=== PATIENT | female | born 1940 | race Caucasian/White ===

== ENCOUNTER 2017-02-24 19:18 | Inpatient (IN) ==
--- NOTE | 2017-02-24 19:56 | Emergency Department Note ---
Disposition Clinical Impression: Hypoxia, COPD exacerbation CHF (congestive heart failure) Qualifiers: Congestive heart failure type: unspecified congestive heart failure type Congestive heart failure chronicity: unspecified congestive heart failure chronicity Qualified Code(s): I50.9 - Heart failure, unspecified Pneumonia Qualifiers: Pneumonia type: due to unspecified organism Laterality: left Lung location: lower lobe of lung Qualified Code(s): J18.1 - Lobar pneumonia, unspecified organism Disposition: Admitted As Inpatient Condition: Fair [facility]errals: [facility] [Primary Care Provider] - Forms: ED Satisfaction Letter General Adult HPI - General Chief complaint: ED Shortness of Breath/Dyspnea Stated complaint: PAMELA Time Seen by Provider: 02/24/17 19:37 Source: patient Mode of arrival: ambulatory Limitations: no limitations Nursing Notes Reviewed: Yes Vital Signs Reviewed: Yes - History of Present Illness HPI Narrative: Patient is a COPD patient requiring 4 L of home oxygen and alternative to 8 in order to do things around her house. Recent increase in overall dyspnea over the last week. Unable to get around with significant shortness of breath. Patient is on 6 L of nasal cannula presentation becomes hypoxic with talking. Patient does not have personal reading. Mild tachypnea. No cough. No sputum production. No fevers or chills. Seen at [place] [facility] with initial workup performed as below. Did not have any beds available for her admission. The patient has received breathing treatments as well as Solu-Medrol 125 mg prior to arrival. Patient has also received 1 g of Rocephin prior to arrival. Labs: Troponin 0.01. INR 1. BNP 316. CK 111 and within normal limits. AST 19. ALC 26. Bilirubin 0.3. Albumin 3.4. Magnesium 2.0. Sodium 142. Potassium 3.8. Chloride 102. CO2 to 35. Glucose 99. BUN20. Creatinine 0.797. GFR greater than 60. WBC 9.7. Hemoglobin 11.9. Platelets 267. They have drawn and sent a theophylline level. Medical history of pulmonary hypertension, obstructive sleep apnea, tobacco use , mechanical low back pain, edema, coronary artery disease, obesity, hypothyroidism, Medications albuterol, atorvastatin, budesonide, cyclobenzaprine, Bucky, chlorothiazide triamterene, levothyroxine, metoprolol, naproxen, pantoprazole, sertraline, theophylline, Chest x-ray with concern for pulmonary vascular congestion as well as a left lower lobe pneumonia. EKG showing sinus rhythm with ventricular rate of 94. 198. QRS 76. QTC 422. No acute changes from previous EKG of 11/25/16. - Related Data Home Medications Medication Instructions Recorded Confirmed Albuterol Neb [Proventil Neb] 2.5 mg IH Q4H PRN 02/24/17 02/24/17 Aspirin Enteric Coated [Aspirin EC] 81 mg PO DAILY 02/24/17 02/24/17 Atorvastatin [Lipitor] 40 mg PO HS 02/24/17 02/24/17 Budesonide/Formoterol 160/4.5 2 puff IH BIDR 02/24/17 02/24/17 [Symbicort 160/4.5] Calcium Carbonate/Vitamin D3 2 each PO DAILY 02/24/17 02/24/17 [Calcium 600-Vit D3 400 Tablet] Cyclobenzaprine [Flexeril] 10 mg PO TID PRN 02/24/17 02/24/17 Guaifenesin [Tab Tussin] 400 mg PO Q8H PRN 02/24/17 02/24/17 Levalbuterol Tartrate [Xopenex Hfa] 2 puff IH Q6H PRN 02/24/17 02/24/17 Levothyroxine [Synthroid] 176 mcg PO QAM 02/24/17 02/24/17 Metoprolol XL (24 HR) Succ [Toprol 25 mg PO DAILY 02/24/17 02/24/17 XL] Naproxen [Naprosyn] 500 mg PO BID PRN 02/24/17 02/24/17 Pantoprazole Sodium 40 mg PO DAILY 02/24/17 02/24/17 Polyethylene Glycol 3350 [MiraLAX] 17 gm PO BID 02/24/17 02/24/17 Vit Calc,Iron,Folic 1 each PO DAILY 02/24/17 02/24/17 [ Vitamins] Sertraline [Zoloft] 50 mg PO DAILY 02/24/17 02/24/17 Theophylline Anhydrous [Herson-24] 100 mg PO DAILY 02/24/17 02/24/17 Tiotropium [place] [Spiriva 2 puff IH DAILY 02/24/17 02/24/17 Respimat] Triamterene/HCTZ 37.5/25mg 1 each PO DAILY 02/24/17 02/24/17 [Dyazide] Allergies Allergy/AdvReac Type Severity Reaction Status Date / Time loratadine [From Claritin] Allergy See Verified 02/24/17 19:21 Comments adhesive tape AdvReac See Verified 02/24/17 19:51 Comments Iodinated Contrast- Oral and AdvReac See Verified 02/24/17 19:51 IV Dye Comments roflumilast AdvReac See Verified 02/24/17 19:51 Comments Review of Systems: Constitutional: No fever Vision: No blurred vision ENT: No rhinorrhea Respiratory: Shortness of breath Allergic: No allergies : No blood in urine GI: No blood in stool Hematologic: No bruising Dermatologic: No skin rash Musculoskeletal: No pain in the extremities Neuro: No numbness of the extremities Physical Exam General appearance: Mild tachypnea Eyes: anicteric sclerae, moist conjunctivae; PERRL HENT: Atraumatic; oropharynx clear with moist mucous membranes and no mucosal ulcerations Neck: Normal inspection; Trachea midline; FROM, supple Lungs: Decreased lung sounds with associated wheezing CV: Regular rate Abdomen: Soft, non-tender; no rebound or gaurding Extremities: No peripheral edema or extremity lymphadenopathy Skin: Normal temperature; no rash, ulcers or lesions Psych: Appropriate mood and affect Neuro: alert and oriented to person, place and time Course - Reevaluation(s) Reevaluation #1: Patient is been placed on BiPAP. DouNebs have been ordered. - Consultations Consultation #1: Discussed with Dr. March, hospitalist. Pt accepted for admission. Vital Signs Temperature 98.0 F 02/24/17 19:40 Pulse Rate 105 02/24/17 19:40 Respiratory Rate 20 02/24/17 19:40 Blood Pressure 134/84 02/24/17 19:40 O2 Sat by Pulse Oximetry 89 02/24/17 19:40 Temperature 98.0 F 02/24/17 19:40 Pulse Rate 104 02/24/17 21:31 Respiratory Rate 24 02/24/17 21:31 Blood Pressure 146/84 02/24/17 21:31 O2 Sat by Pulse Oximetry 95 02/24/17 21:31 Oxygen Delivery Oxygen Delivery Bipap
--- NOTE | 2017-02-24 20:25 | Emergency Department Note ---
START Narrative - START START: I examined this patient and my medical decision-making was reviewed with the Resident Physician. I agree with the documented findings, disposition and treatment plan as described except to the extent set forth below. I spent greater than 35 minutes of critical care time resuscitating this acutely ill patient suffering from hypoxia. The patient was sent from the [facility]. Suspect heart failure. Imaging and laboratory analyses were completed at the [facility]. The patient will be started on BiPAP and admitted for further evaluation.
[2017-02-24] MEDS ORDERED: Azithromycin 500 MG in D5% in Water 250 ML IVPB ONE (20:34)
[2017-02-24] MEDS ORDERED: Ipratropium/Albuterol Neb 3 ML IH ONE (20:34)
[2017-02-24] MEDS ORDERED: Naloxone 0.4 MG/ML INJ IVP PRN (21:16)
[2017-02-24] MEDS ORDERED: Acetaminophen 325 MG TABLET PO PRN (21:16)
[2017-02-24] MEDS ORDERED: Ipratropium/Albuterol Neb 3 ML IH PRN (21:26)
[2017-02-24] MEDS ORDERED: GuaiFENesin Liq 200 MG/10 ML UDC PO PRN (21:28)
[2017-02-24] MEDS ORDERED: Vancomycin 1,750 MG in D5% in Water 250 ML IVPB SCH (22:00)
--- NOTE | 2017-02-24 22:28 | Internal Med History&Physical ---
Date of Encounter: 02/24/17 Time of Encounter: 20:00 Assessment and Plan (1) CHF exacerbation Current visit: Yes Status: Acute Patient has shortness of breath. Elevated BNP (not significantly but patient is obese, possibly falsely low), chest x-ray shows pulmonary congestion. Patient has bilateral leg swelling. - We will place patient on IV Lasix. - Echocardiogram - Fluid restriction Qualifiers: Congestive heart failure type: unspecified congestive heart failure type Qualified Code(s): I50.9 - Heart failure, unspecified (2) MORIAH (obstructive sleep apnea) Current visit: Yes Status: Acute Continue BiPAP. At this point to place BiPAP continuously, may change to at bedtime after patient's condition improved (3) Pulmonary hypertension Current visit: Yes Status: Acute History of pulmonary hypertension. Probably due to MORIAH. Echo ordered. Treated hypoxia with BiPAP (4) DVT prophylaxis Current visit: Yes Status: Acute Heparin subcutaneously (5) Hypertension Current visit: Yes Status: Acute Continue home medications Qualifiers: Hypertension type: essential hypertension Qualified Code(s): I10 - Essential (primary) hypertension (6) Pneumonia Current visit: Yes Status: Acute Chest x-ray shows left lower lobe pneumonia. Patient was recently admitted to Hospital (less than 3 months), consider HCAP. - Place patient on Vanco, cefepime, and Levaquin. - Symptomatic treatment and supportive treatment with BiPAP Qualifiers: Pneumonia type: due to Pneumococcus Laterality: left Lung location: lower lobe of lung Qualified Code(s): J13 - Pneumonia due to Streptococcus pneumoniae (7) COPD exacerbation Current visit: Yes Status: Acute History of COPD. Patient has wheezing. Consider COPD exacerbation, probably triggered by pneumonia. - Treat patient with antibiotic, steroid, and bronchodilator. - Continue BiPAP supportive treatment. (8) Acute respiratory failure with hypoxia Current visit: Yes Status: Acute Most likely caused by COPD exacerbation and pneumonia, and CHF exacerbation. - Treat underlying disease as above. - Continue BiPAP supportive treatment - Closely monitor patient with cardiac and pulse oximeter monitoring. Internal Medicine - H&P: HPI Chief complaint: Shortness of breath Admitted From: Home Plans for Post Hospital Care: Home History of present illness: Ms. Rodgers is a 76 year old female with history of COPD on home oxygen and home BiPAP, pulmonary hypertension, MORIAH, transferred from [place] urgent care for worsening shortness of breath. Patient said she needed 5-8 L oxygen at home and BiPAP during night. Patient said she feel worsening shortness of breath since one week ago. Even worse in the last 3 days. No fever. Denies chest pain. Nonproductive cough. Denies nausea, vomiting, abdominal pain, or diarrhea. In the urgent care, chest x-ray shows pulmonary vascular congestion and left lower lobe pneumonia. Patient was recently admitted in the hospital in December 04 for pneumonia. Patient was given steroid and IV Lasix in [place] urgent care. Patient was admitted for further treatment. I have discussed with code status with patient. Patient clearly told me she does not want CPR if cardiac arrest happens. She accepts intubation if necessary. DNR CCA placed. Past Med Surg Social Fam HX - Past Medical History Medical history: CHF, COPD, coronary artery disease, diabetes, hyperlipidemia, thyroid disease Psychiatric history: no psych history - Past Surgical History Surgical History: hysterectomy - Social History Smoking Status: Former smoker - Family History Mother History Unknown: Yes Internal Medicine - H&P: Meds Albuterol Neb [Proventil Neb] 2.5 mg IH Q4H PRN 02/24/17 [History] Aspirin Enteric Coated [Aspirin EC] 81 mg PO DAILY 02/24/17 [History] Atorvastatin [Lipitor] 40 mg PO HS 02/24/17 [History] Budesonide/Formoterol 160/4.5 [Symbicort 160/4.5] 2 puff IH BIDR 02/24/17 [ History] Calcium Carbonate/Vitamin D3 [Calcium 600-Vit D3 400 Tablet] 2 each PO DAILY [History] Cyclobenzaprine [Flexeril] 10 mg PO TID PRN 02/24/17 [History] Guaifenesin [Tab Tussin] 400 mg PO Q8H PRN 02/24/17 [History] Levalbuterol Tartrate [Xopenex Hfa] 2 puff IH Q6H PRN 02/24/17 [History] Levothyroxine [Synthroid] 176 mcg PO QAM 02/24/17 [History] Metoprolol XL (24 HR) Succ [Toprol XL] 25 mg PO DAILY 02/24/17 [History] Naproxen [Naprosyn] 500 mg PO BID PRN 02/24/17 [History] Pantoprazole Sodium 40 mg PO DAILY 02/24/17 [History] Polyethylene Glycol 3350 [MiraLAX] 17 gm PO BID 02/24/17 [History] Vit Calc,Iron,Folic [ Vitamins] 1 each PO DAILY 02/24/17 [ History] Sertraline [Zoloft] 50 mg PO DAILY 02/24/17 [History] Theophylline Anhydrous [Herson-24] 100 mg PO DAILY 02/24/17 [History] Tiotropium [place] [Spiriva Respimat] 2 puff IH DAILY 02/24/17 [History] Triamterene/HCTZ 37.5/25mg [Dyazide] 1 each PO DAILY 02/24/17 [History] 3 Allergy/AdvReac Type Severity Reaction Status Date / Time loratadine [From Claritin] Allergy See Verified 02/24/17 19:21 Comments adhesive tape AdvReac See Verified 02/24/17 19:51 Comments Iodinated Contrast- Oral and AdvReac See Verified 02/24/17 19:51 IV Dye Comments roflumilast AdvReac See Verified 02/24/17 19:51 Comments All Systems PM: A 10-system review of systems was performed and is negative for pertinent findings except as documented above in the HPI. - Constitutional Vitals: Temp Pulse Resp BP Pulse Ox 98.0 F 104 24 146/84 95 02/24/17 19:40 02/24/17 21:31 02/24/17 21:31 02/24/17 21:31 02/24/17 21:31 General appearance: Present: mild distress, A&O X 3, morbidly obese, answers questions appropriately - Head Head exam: Present: atraumatic, normocephalic - Eye Eye exam: Present: PERRL, conjuntiva pink, sclera anicteric Pupils: Present: PERRL - Neck Neck exam general surgery: Present: supple, trachea midline. Absent: lymphadenopathy - Respiratory Respiratory exam: Present: CTAB, wheezes (Scattered wheezes bilaterally). Absent: accessory muscle use, rales, rhonchi - Cardiovascular Cardiovascular exam: Present: RRR, +S1, +S2. Absent: diastolic murmur, gallop, rubs, systolic murmur - GI/Abdominal GI/Abdominal exam: Present: normal bowel sounds, soft, no peritoneal signs. Absent: distended, tenderness - Extremities Exam Extremities exam: Present: pedal edema (Bilateral pedal edema up to knees), warm , radial pulses palpable and symmetrical. Absent: calf tenderness, cyanotic - Neurological Exam Neurological exam: Present: CN II-XII intact, oriented X3, no focal deficits. Absent: pronater drift, facial droop, speech deficit - Skin Skin exam: Present: dry, intact Internal Med - H&P Results - EKG Data -: EKG Interpreted by Myself EKG shows normal: sinus rhythm Rate: tachycardia - EKG Data Prior EKG available for review: yes When compared to previous EKG: there is no significant change
[2017-02-24] MEDS: Ipratropium/Albuterol Neb 3 ML IH SCH (22:59)
[2017-02-24] MEDS: Budesonide/Formoterol 160/4.5 MDI IH SCH (22:59)
[2017-02-24] MEDS ORDERED: Vancomycin 1,750 MG in D5% in Water 500 ML IVPB ONE (23:30)
[2017-02-24] MEDS: Levofloxacin 750 MG/150 ML 750 MG/150 ML BAG IVPB SCH (23:58)
[2017-02-24] MEDS: methylPREDNISolone 125 MG/2 ML VIAL IVP SCH (23:59)
[2017-02-25] MEDS: Cefepime HCl 1,000 MG in Water for inj. (sterile) 20 ML 10 ML IVP SCH ×3 (01:10→16:12)
[2017-02-25] MEDS: Ipratropium/Albuterol Neb 3 ML IH SCH ×4 (03:36→22:28)
[2017-02-25] MEDS: *HR* Heparin 5,000 UNIT/ML VIAL SQ SCH ×2 (05:10→17:18)
[2017-02-25 05:54] LABS: Basophils % 0.1 %; Hematocrit 36.1 % (35.3-44.9); Hemoglobin 11.2 g/dL (11.5-15.4); Immature Granulocytes % 0.7 % (0-4); Lymphocytes # 0.6 K/mcL (0.6-4.6); Lymphocytes % 6.8 %; Mean Corpuscular Hemoglobin 29.8 pg (28.0-33.3); Mean Platelet Volume 9.3 fL (9.4-12.4); Monocytes # 0.1 K/mcL (0.0-1.3); Monocytes % 0.8 %; Neutrophils # 8.1 K/mcL (1.6-8.9); Platelet Count 234 K/mcL (140-400); Red Blood Count 3.76 M/mcL (3.82-4.97); Red Cell Distribution Width 15.4 % (11.5-14.5); Segmented Neutrophils % 91.6 %
[2017-02-25 06:11] LABS: Alanine Aminotransferase 16 Units/L (7-52); Albumin 3.6 g/dL (3.5-5.7); Albumin/Globulin Ratio 1.4 (1.1-2.2); Alkaline Phosphatase 81 Units/L (34-104); Aspartate Amino Transferase 13 Units/L (13-39); BUN/Creatinine Ratio 26 (6-26); Bilirubin,Total 0.3 mg/dL (0.3-1.0); Blood Urea Nitrogen 23 mg/dL (8-23); Calcium 9.4 mg/dL (8.6-10.3); Carbon Dioxide 34 mEq/L (23-29); Chloride 99 mEq/L (98-107); Globulin 2.6 g/dL (2.4-3.5); Glucose 160 mg/dL (70-105); Magnesium 1.6 mg/dL (1.6-2.6); Osmolality,Calculated 299 (280-300); Potassium 3.6 mEq/L (3.5-5.1); Sodium 141 mEq/L (136-145); Total Protein 6.2 g/dL (6.4-8.9); eGFR For African Americans > 60 (> 60); eGFR For Non-African Americans > 60 (> 60)
[2017-02-25] MEDS: Aspirin Enteric Coated 81 MG Tablet PO SCH (08:15)
[2017-02-25] MEDS: Metoprolol XL (24 HR) Succ 25 MG TAB.ER.24H PO SCH (08:15)
[2017-02-25] MEDS: Furosemide 40 MG/4 ML VIAL IVP SCH ×2 (08:16→22:17)
[2017-02-25] MEDS: methylPREDNISolone 125 MG/2 ML VIAL IVP SCH ×2 (08:20→16:08)
[2017-02-25] MEDS: Levofloxacin 750 MG/150 ML 750 MG/150 ML BAG IVPB SCH (08:21)
[2017-02-25] MEDS: Budesonide/Formoterol 160/4.5 MDI IH SCH ×2 (10:56→22:28)
[2017-02-25] MEDS ORDERED: Vancomycin 1,500 MG in D5% in Water 250 ML IVPB SCH (11:30)
--- NOTE | 2017-02-25 13:44 | Internal Med Progress Note ---
Date of Encounter: 02/25/17 Time of Encounter: 13:30 - Assessment and plan (1) Pneumonia Current Visit: Yes Status: Acute Assessment and plan: Per chest x-ray there is left lower pneumonia. Patient was recently admitted to the hospital for same, most likely HCAP. Patient is also being admitted for acute exacerbation of CHF which is worsening her shortness of breath. She is requiring high flow oxygen, though she does not appear to be in severe respiratory distress. Her lungs are diminished throughout posterior baeza. We will continue BiPAP for respiratory distress, O2, nebulizer treatments. Continue telemetry and continuous pulse ox. Continue IV vancomycin, cefepime, and IV Levaquin. Continue IV Solu-Medrol Continue Robitussin. Qualifiers: Pneumonia type: due to Pneumococcus Laterality: left Lung location: lower lobe of lung Qualified Code(s): J13 - Pneumonia due to Streptococcus pneumoniae (2) COPD exacerbation Current Visit: Yes Status: Acute Assessment and plan: History of COPD, difficult to determine if this is acute exacerbation of COPD, CHF, or pneumonia combination of all. Plan as above for pneumonia. Attempt to wean oxygen as soon as possible. (3) CHF exacerbation Current Visit: Yes Status: Acute Assessment and plan: She presents with shortness of breath for 3-4 days. Elevated BNP mildly. Chest x-ray shows pulmonary congestion, as well as pneumonia. Patient is requiring high flow oxygen at this time. She also has BiPAP in the room. Patient has 3-4+ pitting edema to bilateral lower extremities, edema has increased over the last few weeks. Continue IV Lasix 40 mg by mouth twice a day Patient is on a 1 L fluid restriction Daily weights, strict I and O Echocardiogram shows preserved ejection fraction with indeterminant diastolic function due to tachycardia, mild aortic sclerosis. Qualifiers: Congestive heart failure type: unspecified congestive heart failure type Qualified Code(s): I50.9 - Heart failure, unspecified (4) MORIAH (obstructive sleep apnea) Current Visit: Yes Status: Acute Assessment and plan: Patient has BiPAP at home, currently she is refusing to wear the BiPAP due to mask not fitting and causing her actual physical pain to her neck and head. Nurse was to call respiratory for new mask. (5) DVT prophylaxis Current Visit: Yes Status: Acute Assessment and plan: Heparin subcutaneous. (6) Hypertension Current Visit: Yes Status: Acute Assessment and plan: Continue to monitor and continue home medications. Qualifiers: Hypertension type: essential hypertension Qualified Code(s): I10 - Essential (primary) hypertension (7) Acute respiratory failure with hypoxia Current Visit: Yes Status: Acute Assessment and plan: Patient is requiring high flow, supplemental oxygen. History of COPD, CHF, recurrent pneumonia. Continue to monitor Continuous pulse ox and telemetry. - Time Spent With Patient less than 15 minutes - Subjective Interval history: Patient was seen and assessed the bedside at 1330. Patient denies chest pain, abdominal pain, nausea, vomiting diarrhea. Patient does report headache due to mask from BiPAP. Primary nurse will call to have mask replaced. - Constitutional Vitals: Temp Pulse Resp BP Pulse Ox 98.6 F 107 16 147/78 90 02/25/17 11:07 02/25/17 11:07 02/25/17 11:07 02/25/17 11:07 02/25/17 11:07 General appearance: Present: cooperative, mild distress, A&O X 3, morbidly obese , pleasant, answers questions appropriately - Head Head exam: Present: atraumatic, normal inspection, normocephalic - Eye Eye exam: Present: normal appearance, conjuntiva pink, sclera anicteric - Neck Neck exam general surgery: Present: supple, trachea midline. Absent: lymphadenopathy - Respiratory Respiratory exam: Present: decreased breath sounds, CTAB. Absent: accessory muscle use, rales, respiratory distress, rhonchi, wheezes - Cardiovascular Cardiovascular exam: Present: RRR, +S1, +S2, tachycardia. Absent: diastolic murmur, gallop, rubs, systolic murmur - GI/Abdominal GI/Abdominal exam: Present: normal bowel sounds, soft, no peritoneal signs. Absent: distended, hepatomegaly, tenderness - Extremities Exam Extremities exam: Present: pedal edema, warm, radial pulses palpable and symmetrical. Absent: calf tenderness, cyanotic, normal capillary refill, normal inspection Additional comments: Patient has 3-4+ pitting edema to bilateral lower extremities. - Neurological Exam Neurological exam: Present: alert, oriented X3, no focal deficits. Absent: facial droop, speech deficit - Skin Skin exam: Present: dry, intact, normal color, warm. Absent: rash Internal Medicine: Result - Labs CBC & Chem 7: 02/25/17 05:08 12/22/17 05:08 Consult Discharge Plan - Plan [facility]errals: [facility] [Primary Care Provider] -
[2017-02-25] MEDS ORDERED: D5% in Water 1,000 ML IVC PRN (16:38)
[2017-02-25] MEDS ORDERED: Dextrose Gel 15 GM PO PRN ×2 (16:38)
[2017-02-25] MEDS ORDERED: *HR* Dextrose 50 % in Water (Syg) 50 ML SYRINGE IVP PRN (16:38)
[2017-02-25] MEDS: Insulin LISPRO 300 UNITS/3 ML VIAL SQ SCH ×2 (17:19→22:42)
--- NOTE | 2017-02-25 18:26 | Electrocardiograph Report ---
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
[2017-02-26] MEDS: Cefepime HCl 1,000 MG in Water for inj. (sterile) 20 ML 10 ML IVP SCH ×3 (01:27→16:59)
[2017-02-26] MEDS: methylPREDNISolone 125 MG/2 ML VIAL IVP SCH ×2 (01:28→08:18)
[2017-02-26] MEDS: Ipratropium/Albuterol Neb 3 ML IH SCH ×4 (04:56→20:29)
[2017-02-26] MEDS: *HR* Heparin 5,000 UNIT/ML VIAL SQ SCH ×2 (06:39→16:58)
[2017-02-26 06:41] LABS: BUN/Creatinine Ratio 29 (6-26); Blood Urea Nitrogen 31 mg/dL (8-23); Calcium 9.6 mg/dL (8.6-10.3); Carbon Dioxide 37 mEq/L (23-29); Chloride 95 mEq/L (98-107); Glucose 158 mg/dL (70-105); Osmolality,Calculated 300 (280-300); Potassium 3.5 mEq/L (3.5-5.1); Sodium 140 mEq/L (136-145); eGFR For African Americans > 60 (> 60); eGFR For Non-African Americans 50 (> 60)
[2017-02-26 06:55] LABS: Basophils % 0.2 %; Hematocrit 36.7 % (35.3-44.9); Hemoglobin 11.8 g/dL (11.5-15.4); Immature Granulocytes % 0.7 % (0-4); Lymphocytes # 0.7 K/mcL (0.6-4.6); Lymphocytes % 5.8 %; Mean Corpuscular HGB Conc 32.2 g/dL (31.6-35.5); Mean Corpuscular Hemoglobin 30.6 pg (28.0-33.3); Mean Corpuscular Volume 95.3 fL (83.0-100.0); Mean Platelet Volume 9.2 fL (9.4-12.4); Monocytes # 0.4 K/mcL (0.0-1.3); Monocytes % 3.5 %; Neutrophils # 11.4 K/mcL (1.6-8.9); Platelet Count 233 K/mcL (140-400); Red Blood Count 3.85 M/mcL (3.82-4.97); Red Cell Distribution Width 15.9 % (11.5-14.5); Segmented Neutrophils % 89.8 %
[2017-02-26 07:30] LABS: Hemoglobin A1C 5.7 %
[2017-02-26] MEDS: Levofloxacin 750 MG/150 ML 750 MG/150 ML BAG IVPB SCH (08:17)
[2017-02-26] MEDS: Furosemide 40 MG/4 ML VIAL IVP SCH ×2 (08:18→20:20)
[2017-02-26] MEDS: Insulin LISPRO 300 UNITS/3 ML VIAL SQ SCH ×4 (08:18→20:48)
[2017-02-26] MEDS: Cholecalciferol (D-3) 1,000 UNIT TABLET PO SCH (08:19)
[2017-02-26] MEDS: Metoprolol XL (24 HR) Succ 25 MG TAB.ER.24H PO SCH (08:19)
[2017-02-26] MEDS: Aspirin Enteric Coated 81 MG Tablet PO SCH (08:19)
[2017-02-26] MEDS ORDERED: NON-FORMULARY MEDICATION 1 EACH EACH (Calcium Carbonate/Vitamin D3 [Calcium 600-Vit D3 400 PO SCH (09:00)
[2017-02-26] MEDS ORDERED: Albuterol 2.5 MG/3 ML NEBULIZER IH PRN (09:33)
--- NOTE | 2017-02-26 09:49 | Pulmonology Consult Note ---
Date of Encounter: 02/26/17 Time of Encounter: 09:45 Assessment and Plan (1) Acute and chronic respiratory failure with hypoxia Current Visit: Yes Status: Acute Patient is coming with acute on chronic hypoxic respiratory failure with the presentation slow increased progressive shortness of breadth with some pedal edema with not much cough and sputum production the contributor most like exacerbation of diastolic heart failure agree with the assesment with the hospitalist team as the primary diagnosis CHF . Patient O2 requirements slightly above baseline. With CXR shows prominent pulmonary vasculature with left sided pleural effusion with atelectasis vs pneumonia. (2) COPD (chronic obstructive pulmonary disease) Current Visit: Yes Status: Chronic Symptoms with out any increased cough and sputum production i dont think it is a COPD flare up , will continue bronchodilators will change IV steroids to PO steroids and descalate with total of 5 days . Qualifiers: Qualified Code(s): J44.9 - Chronic obstructive pulmonary disease, unspecified (3) CHF (congestive heart failure) Current Visit: Yes Status: Acute Patient has elevated BNP with some indeterminate diastolic function to continue diuresis to aim atleast 1 liter negative . Qualifiers: Congestive heart failure type: diastolic Congestive heart failure chronicity: acute on chronic Qualified Code(s): I50.33 - Acute on chronic diastolic (congestive) heart failure (4) Pneumonia Current Visit: Yes Status: Acute Left lower lobe opacity can due to atelectasis /pneumonia even though she doesnt have much cough and sputum production atypical pneumonia can present like that will deescalate antibiotics , will check for legionell and mycoplasma , will continue levaquin for total of 7 days . Qualifiers: Pneumonia type: due to Pneumococcus Laterality: left Lung location: lower lobe of lung Qualified Code(s): J13 - Pneumonia due to Streptococcus pneumoniae History of Present Illness Consult date: 02/26/17 Requesting physician: Annamaria Juarez Reason for consult: other (acute on chronic hypoxic respiratory failure ) Chief complaint: shortness of breadth History of present illness: 76 year old female with past medical history significant for COPD on Home Oxygen 6-8 litres at baseline , has MORIAH/OHS according to chart review patient is on BIPAP , is coming [facility] she went for evaluation of her shortness of breadth , according to history she was getting progressively short of breadth , with some cough which is mostly non productive , denies any chest pain or tightness , denies any fever or chills , denies any GI or Neuro symptoms Past Med Surg Social Fam HX - Past Medical History Medical history: CHF, COPD, coronary artery disease, diabetes, hyperlipidemia, thyroid disease Psychiatric history: no psych history - Past Surgical History Surgical History: hysterectomy, orthopedic, other - Social History Smoking Status: Former smoker Smokeless Tobacco Status: No Alcohol use: none Drug use: none - Family History Mother History Unknown: Yes Living Status: Cause of : Anyeurism Hx Family Cardiac Disorders: Yes Father Living Status: Hx Family Cardiac Disorders: Yes (HTN) Hx Family Cancer: Yes Medications and Allergies Albuterol Neb [Proventil Neb] 2.5 mg IH Q4H PRN 02/24/17 [History] Aspirin Enteric Coated [Aspirin EC] 81 mg PO DAILY 02/24/17 [History] Atorvastatin [Lipitor] 40 mg PO HS 02/24/17 [History] Budesonide/Formoterol 160/4.5 [Symbicort 160/4.5] 2 puff IH BIDR 02/24/17 [ History] Calcium Carbonate/Vitamin D3 [Calcium 600-Vit D3 400 Tablet] 2 each PO DAILY [History] Cyclobenzaprine [Flexeril] 10 mg PO TID PRN 02/24/17 [History] Guaifenesin [Tab Tussin] 400 mg PO Q8H PRN 02/24/17 [History] Levalbuterol Tartrate [Xopenex Hfa] 2 puff IH Q6H PRN 02/24/17 [History] Levothyroxine [Synthroid] 176 mcg PO QAM 02/24/17 [History] Metoprolol XL (24 HR) Succ [Toprol XL] 25 mg PO DAILY 02/24/17 [History] Naproxen [Naprosyn] 500 mg PO BID PRN 02/24/17 [History] Pantoprazole Sodium 40 mg PO DAILY 02/24/17 [History] Polyethylene Glycol 3350 [MiraLAX] 17 gm PO BID 02/24/17 [History] Vit Calc,Iron,Folic [ Vitamins] 1 each PO DAILY 02/24/17 [ History] Sertraline [Zoloft] 50 mg PO DAILY 02/24/17 [History] Theophylline Anhydrous [Herson-24] 100 mg PO DAILY 02/24/17 [History] Tiotropium [place] [Spiriva Respimat] 2 puff IH DAILY 02/24/17 [History] Triamterene/HCTZ 37.5/25mg [Dyazide] 1 each PO DAILY 02/24/17 [History] 3 Allergy/AdvReac Type Severity Reaction Status Date / Time loratadine [From Claritin] Allergy See Verified 02/24/17 19:21 Comments adhesive tape AdvReac See Verified 02/24/17 19:51 Comments Iodinated Contrast- Oral and AdvReac See Verified 02/24/17 19:51 IV Dye Comments roflumilast AdvReac See Verified 02/24/17 19:51 Comments All Systems: A 10-system review of systems was performed and is negative for pertinent findings except as documented above in the HPI. Physical Examination Vital Signs: Vital Signs, Last 4 Hours Temp Pulse Resp BP Pulse Ox 02/26/17 06:59 97.8 F 83 16 123/75 94 Auscultation: left: diminished breath sounds, bilateral: other (very mild basilar scattered crackles ) Results - Laboratory Findings CBC and BMP: 02/26/17 06:15 02/26/17 06:15 Abnormal lab findings: Abnormal lab results WBC 12.7 K/mcL (4.3-11.1) H 02/26/17 06:15 RDW 15.9 % (11.5-14.5) H 02/26/17 06:15 MPV 9.2 fL (9.4-12.4) L 02/26/17 06:15 Neutrophils # 11.4 K/mcL (1.6-8.9) H 02/26/17 06:15 Chloride 95 mEq/L (98-107) L 02/26/17 06:15 Carbon Dioxide 37 mEq/L (23-29) H 02/26/17 06:15 BUN 31 mg/dL (8-23) H 02/26/17 06:15 Est GFR (Non-Af Amer) 50 (> 60) L 02/26/17 06:15 BUN/Creatinine Ratio 29 (6-26) H 02/26/17 06:15 Glucose 158 mg/dL (70-105) H 02/26/17 06:15 POC Glucose 155 (58-89) H 02/25/17 22:32 Hemoglobin A1c 5.7 % (-5.6) H 02/26/17 06:15 Serum Total Protein 6.2 g/dL (6.4-8.9) L 02/25/17 05:08 - Clinical Findings Intake & Output: Intake & Output 02/25/17 02/26/17 02/26/17 23:59 07:59 15:59 Intake Total Output Total 200 / 200 Balance -190 / -190 Weight 108.588 kg Consult Discharge Plan - Plan [facility]: [facility] [Primary Care Provider] -
[2017-02-26] MEDS ORDERED: Aminoglycoside Consult 1 EACH MC ONE (10:28)
[2017-02-26] MEDS ORDERED: Furosemide 40 MG/4 ML VIAL IVP ONE (10:29)
[2017-02-26] MEDS: Budesonide/Formoterol 160/4.5 MDI IH SCH ×2 (10:34→20:29)
[2017-02-26] MEDS ORDERED: Vancomycin 1,500 MG in D5% in Water 250 ML IVPB SCH (12:00)
--- NOTE | 2017-02-26 14:27 | Internal Med Progress Note ---
Date of Encounter: 02/26/17 Time of Encounter: 09:20 - Assessment and plan (1) Pneumonia Current Visit: Yes Status: Acute Assessment and plan: Per chest x-ray there is left lower pneumonia. Patient was recently admitted to the hospital for same, most likely HCAP. Patient is also being admitted for acute exacerbation of CHF which is worsening her shortness of breath. Patient is in no respiratory distress, oxygen has been turned down to 5 L. Her lungs are diminished throughout posterior baeza. Repeat chest x-ray today shows persistent cardiomegaly with small pleural effusions and atelectasis, left worse than right. We will continue BiPAP for respiratory distress, O2, nebulizer treatments. Continue telemetry and continuous pulse ox. Continue IV Levaquin and cefepime. Vancomycin has been stopped. IV Solu-Medrol has been stopped, will continue prednisone 40 mg by mouth daily. Continue Robitussin. Qualifiers: Pneumonia type: due to Pneumococcus Laterality: left Lung location: lower lobe of lung Qualified Code(s): J13 - Pneumonia due to Streptococcus pneumoniae (2) COPD exacerbation Current Visit: Yes Status: Acute Assessment and plan: History of COPD, difficult to determine if this is acute exacerbation of COPD, CHF, or pneumonia combination of all. Plan as above for pneumonia. Attempt to wean oxygen as soon as possible. Patient has been evaluated by pulmonology today. I appreciate his recommendations and consultation. He feels that this is primarily related to CHF patient needs continued diuresis. (3) CHF exacerbation Current Visit: Yes Status: Acute Assessment and plan: She presents with shortness of breath for 3-4 days. Elevated BNP mildly. Chest x-ray on 02/26 shows cardiomegaly small pleural effusions and atelectasis , left worse than right. Patient is requiring high flow oxygen at this time. She also has BiPAP in the room. Patient has 3-4+ pitting edema to bilateral lower extremities, edema has increased over the last few weeks, does not appear to be improving. Continue IV Lasix 40 mg by mouth twice a day Patient is on a 1 L fluid restriction Daily weights, strict I and O Echocardiogram shows preserved ejection fraction with indeterminant diastolic function due to tachycardia, mild aortic sclerosis. Patient had approximately 610 ML out yesterday. Qualifiers: Congestive heart failure type: unspecified congestive heart failure type Qualified Code(s): I50.9 - Heart failure, unspecified (4) MORIAH (obstructive sleep apnea) Current Visit: Yes Status: Acute Assessment and plan: Patient has BiPAP at home, will continue here as well. (5) DVT prophylaxis Current Visit: Yes Status: Acute Assessment and plan: Heparin subcutaneous BID (6) Hypertension Current Visit: Yes Status: Acute Assessment and plan: Continue to monitor and continue home medications. Within acceptable range. Qualifiers: Hypertension type: essential hypertension Qualified Code(s): I10 - Essential (primary) hypertension (7) Acute respiratory failure with hypoxia Current Visit: Yes Status: Acute Assessment and plan: Patient is requiring supplemental oxygen. History of COPD, CHF, recurrent pneumonia. Continue to monitor Continuous pulse ox and telemetry. - Subjective Interval history: Patient was seen and assessed the bedside at 0920. Patient denies chest pain, abdominal pain, nausea, vomiting diarrhea. She denies headache or dizziness. Patient has been wearing BiPAP at night, mask has improved. Patient states that although she is feeling better, she is not breathing any better, nor has her edema in her bilateral lower extremities really improved. - Constitutional Vitals: Temp Pulse Resp BP Pulse Ox 98.6 F 108 17 130/63 92 02/26/17 11:33 02/26/17 11:33 02/26/17 11:33 02/26/17 11:33 02/26/17 11:33 General appearance: Present: cooperative, mild distress, A&O X 3, morbidly obese , pleasant, answers questions appropriately - Head Head exam: Present: atraumatic, normal inspection, normocephalic - Eye Eye exam: Present: normal appearance, conjuntiva pink, sclera anicteric - Neck Neck exam general surgery: Present: supple, trachea midline. Absent: lymphadenopathy, tenderness - Respiratory Respiratory exam: Present: decreased breath sounds, CTAB. Absent: accessory muscle use, chest wall tenderness, rales, respiratory distress, rhonchi, wheezes - Cardiovascular Cardiovascular exam: Present: RRR, +S1, +S2. Absent: diastolic murmur, gallop, rubs, systolic murmur - GI/Abdominal GI/Abdominal exam: Present: distended, normal bowel sounds, soft, no peritoneal signs. Absent: tenderness - Extremities Exam Extremities exam: Present: pedal edema, warm, radial pulses palpable and symmetrical. Absent: calf tenderness, cyanotic, normal capillary refill, tenderness - Neurological Exam Neurological exam: Present: alert, oriented X3, no focal deficits. Absent: facial droop, speech deficit - Skin Skin exam: Present: dry, intact, normal color, warm. Absent: rash Internal Medicine: Result - Labs CBC & Chem 7: 02/26/17 06:15 02/26/17 06:15 Labs: Short CBC 02/26/17 Range/Units 06:15 WBC 12.7 H (4.3-11.1) K/mcL Hgb 11.8 (11.5-15.4) g/dL Hct 36.7 (35.3-44.9) % Plt Count 233 (140-400) K/mcL Neutrophils # 11.4 H (1.6-8.9) K/mcL BMP 02/26/17 06:15 Sodium 140 Potassium 3.5 Chloride 95 L Carbon Dioxide 37 H BUN 31 H Creatinine 1.07 Glucose 158 H Calcium 9.6 Cardiac Enzymes 02/26/17 Range/Units 12:53 Troponin I < 0.03 (< 0.04) ng/mL - Impressions Impressions Chest X-Ray 02/26/17 10:15 IMPRESSION: Persistent cardiomegaly with small pleural effusions and atelectasis, left worse than right. D/ / 02/26/2017 10:18:56 Fabián Craig MD / [facility] Interpreting Provider: Fabián Craig MD Consult Discharge Plan - Plan [facility]errals: [facility] [Primary Care Provider] -
[2017-02-27] MEDS: Cefepime HCl 1,000 MG in Water for inj. (sterile) 20 ML 10 ML IVP SCH (01:30)
[2017-02-27] MEDS: Ipratropium/Albuterol Neb 3 ML IH SCH ×7 (04:17→23:18)
[2017-02-27] MEDS: Budesonide/Formoterol 160/4.5 MDI IH SCH ×2 (07:32→19:52)
[2017-02-27] MEDS ORDERED: predniSONE 20 MG TABLET PO SCH (09:00)
[2017-02-27] MEDS: *HR* Heparin 5,000 UNIT/ML VIAL SQ SCH ×2 (11:26→17:41)
[2017-02-27] MEDS: Insulin LISPRO 300 UNITS/3 ML VIAL SQ SCH ×4 (11:26→21:53)
[2017-02-27] MEDS: Levofloxacin 750 MG/150 ML 750 MG/150 ML BAG IVPB SCH (11:45)
[2017-02-27] MEDS: Furosemide 40 MG/4 ML VIAL IVP SCH ×2 (11:46→21:52)
[2017-02-27] MEDS: Metoprolol XL (24 HR) Succ 25 MG TAB.ER.24H PO SCH (11:49)
[2017-02-27] MEDS: Aspirin Enteric Coated 81 MG Tablet PO SCH (11:50)
[2017-02-27] MEDS: Cholecalciferol (D-3) 1,000 UNIT TABLET PO SCH (11:51)
--- NOTE | 2017-02-27 12:45 | Pulmonology Progress Note ---
Date of Encounter: 02/27/17 Time of Encounter: 12:20 Assessment and Plan (1) Acute and chronic respiratory failure with hypoxia Current Visit: Yes Status: Acute Patient at rest she is almost to her baseline , but on exertion she desaturates . Contributed by diastolic heart failure less likely pneumonia and flare up . To encourage incentive spirometry , to continue diuresis as tolerated by renal function . V/Q scan showed only matched defect no umatched defects since we have alternative diagnosis wont treat with Heparin , if not getting better will get ct chest w/o contrast better delineate the left lower lobe process and the extent of the pleural effusion to see whether would be beneficial to do Thoracentesis (2) Acute and chronic respiratory failure with hypercapnia Current Visit: Yes Status: Chronic Patient PH is compensated no need of BIPAP for now , to continue her usual PAP therapy at night for her MORIAH .. If there is mental status change repeat blood gas , the current compensated acute on chronic hypercapnic respiratory failure (3) CHF (congestive heart failure) Current Visit: Yes Status: Acute Patient has acute on chronic diastolic heart failure to continue diuresis as tolerated and to continue incentive spirometry , ensure good blood pressure control . Qualifiers: Congestive heart failure type: diastolic Congestive heart failure chronicity: acute on chronic Qualified Code(s): I50.33 - Acute on chronic diastolic (congestive) heart failure (4) COPD (chronic obstructive pulmonary disease) Current Visit: Yes Status: Chronic Doesnt look like COPD flare up will continue the current regimen of bronchodilators and finish a short course of steroids Qualifiers: Qualified Code(s): J44.9 - Chronic obstructive pulmonary disease, unspecified (5) Pneumonia Current Visit: Yes Status: Chronic Patient didnt present with cough and sputum production much will antibiotics was descalated to atypical coverage alone. Qualifiers: Pneumonia type: due to unspecified organism Laterality: left Lung location: lower lobe of lung Qualified Code(s): J18.1 - Lobar pneumonia, unspecified organism (6) MORIAH and COPD overlap syndrome Current Visit: Yes Status: Chronic To continue home PAP therapy. Subjective Principal diagnosis: Acute on Chronic hypoxic and hypercapnic respiratory failure Interval history: Patient presented as CHF exacerbation more than COPD flare up, patient says at rest she feels better on exertion she feels short of breadth, denies any chest pain or shortness of breadth . Had V/Q scan ordered by the primary hospitalist which showed only matched defects there is no unmatched defects Objective PUL Vital signs: Last Vital Signs Temp 98 F 02/27/17 11:38 Pulse 100 02/27/17 11:38 Resp 95 02/27/17 11:38 BP 129/84 02/27/17 11:38 Pulse Ox 95 02/27/17 11:38 General appearance: alert Effort: mildly labored Auscultation: bilateral: wheezes (some scattered wheezes ), other (bilateral bibasilar crackles ) Extremities: edema Results - Laboratory Findings CBC and BMP: 02/26/17 06:15 02/26/17 06:15 Abnormal lab findings: Abnormal lab results WBC 12.7 K/mcL (4.3-11.1) H 02/26/17 06:15 RDW 15.9 % (11.5-14.5) H 02/26/17 06:15 MPV 9.2 fL (9.4-12.4) L 02/26/17 06:15 Neutrophils # 11.4 K/mcL (1.6-8.9) H 02/26/17 06:15 Chloride 95 mEq/L (98-107) L 02/26/17 06:15 Carbon Dioxide 37 mEq/L (23-29) H 02/26/17 06:15 BUN 31 mg/dL (8-23) H 02/26/17 06:15 Est GFR (Non-Af Amer) 50 (> 60) L 02/26/17 06:15 BUN/Creatinine Ratio 29 (6-26) H 02/26/17 06:15 Glucose 158 mg/dL (70-105) H 02/26/17 06:15 POC Glucose 152 (58-89) H 02/26/17 20:33 Hemoglobin A1c 5.7 % (-5.6) H 02/26/17 06:15 Serum Total Protein 6.2 g/dL (6.4-8.9) L 02/25/17 05:08 Vancomycin Trough 8.2 mcg/mL (10-20) L 02/26/17 12:53 - Microbiology Findings Microbiology Findings: Microbiology, Last 48 Hours 02/27/17 04:10 Legionella Antigen - Final Urine,Clean Catch - Clinical Findings Intake & Output: Intake & Output 02/26/17 02/27/17 02/27/17 23:59 07:59 15:59 Intake Total 360 / 360 Balance 360 / 360 Weight 102.965 kg Consult Discharge Plan - Plan [facility]errals: [facility] [Primary Care Provider] -
[2017-02-27 16:31] LABS: ABG Base Excess 19 mEq/L (-2 to 3); ABG HCO3 48 mEq/L (21-27); ABG Oxygen Saturation 98 % (95-98); ABG PCO2 72 mmHg (35-45); ABG PH 7.43 pH Units (7.32-7.45); ABG PO2 106 mmHg (85-104); ABG TCO2 50 mEq/L (20-26)
--- NOTE | 2017-02-27 17:46 | Internal Med Progress Note ---
Date of Encounter: 02/27/17 Time of Encounter: 11:00 - Assessment and plan (1) Morbid obesity Current Visit: Yes Status: Acute (2) CHF exacerbation Current Visit: Yes Status: Acute Assessment and plan: We will obtain stat BNP. Patient has mild lower extremity edema. Echocardiogram with normal systolic function, indeterminant diastolic dysfunction. I am not convinced that this is CHF exacerbation. Per review of medical records from the [place] at her proBNP there was 360 which was within the normal range for a 76-year-old person. Interval history: "he presents with shortness of breath for 3-4 days. Elevated BNP mildly. Chest x-ray on 02/26 shows cardiomegaly small pleural effusions and atelectasis , left worse than right. Patient is requiring high flow oxygen at this time. She also has BiPAP in the room. Patient has 3-4+ pitting edema to bilateral lower extremities, edema has increased over the last few weeks, does not appear to be improving. Continue IV Lasix 40 mg by mouth twice a day Patient is on a 1 L fluid restriction Daily weights, strict I and O Echocardiogram shows preserved ejection fraction with indeterminant diastolic function due to tachycardia, mild aortic sclerosis. Patient had approximately 610 ML out yesterday. " Qualifiers: Congestive heart failure type: unspecified congestive heart failure type Qualified Code(s): I50.9 - Heart failure, unspecified (3) COPD (chronic obstructive pulmonary disease) Current Visit: Yes Status: Chronic Assessment and plan: Diminished breath sounds with faint expiratory wheezes. Suggestive of COPD exacerbation. We will switch to IV steroids. Continue with inhaled albuterol and ipratropium. Incentive spirometry. Supplemental oxygen. Obtain ABG. Qualifiers: COPD type: chronic bronchitis Chronic bronchitis type: simple Qualified Code(s): J41.0 - Simple chronic bronchitis (4) Acute and chronic respiratory failure with hypoxia Current Visit: Yes Status: Acute Assessment and plan: Secondary to COPD exacerbation. Continue oxygen by nasal catheter. Obtain ABG to evaluate for hypercapnia. - Subjective Interval history: Patient reports 0/10 shortness of breath at rest, however with minimal exertion such as ambulating a few steps and just standing up she becomes severely short of breath and lightheaded, to the point where she to sit down,. She denies chest pain. Symptoms improve with oxygen by nasal cannula. She did not notice any significant change since yesterday. - Constitutional Vitals: Temp Pulse Resp BP Pulse Ox 97.8 F 95 25 124/85 92 02/27/17 15:58 02/27/17 15:58 02/27/17 17:17 02/27/17 15:58 02/27/17 17:17 General appearance: Present: cooperative, mild distress, A&O X 3, morbidly obese , pleasant, answers questions appropriately - Eye Eye exam: Present: PERRL, conjuntiva pink, sclera anicteric Pupils: Present: PERRL - Respiratory Respiratory exam: Present: decreased breath sounds, CTAB. Absent: accessory muscle use, rales, rhonchi, wheezes - Cardiovascular Cardiovascular exam: Present: RRR, +S1, +S2. Absent: diastolic murmur, gallop, rubs, systolic murmur - GI/Abdominal GI/Abdominal exam: Present: normal bowel sounds, soft, no peritoneal signs. Absent: distended, tenderness - Extremities Exam Extremities exam: Present: pedal edema, warm. Absent: calf tenderness, cyanotic - Neurological Exam Neurological exam: Present: CN II-XII intact, oriented X3, no focal deficits. Absent: pronater drift, facial droop, speech deficit - Skin Skin exam: Present: dry, intact Internal Medicine: Result - Labs CBC & Chem 7: 02/26/17 06:15 02/26/17 06:15 - ABG Interpretation ABG results: ABG ABG pH 7.43 pH Units (7.32-7.45) 02/27/17 16:19 ABG pCO2 72 mmHg (35-45) H* 02/27/17 16:19 ABG pO2 106 mmHg (85-104) H 02/27/17 16:19 ABG O2 Saturation 98 % (95-98) 02/27/17 16:19 - Impressions Impressions Have reviewed the records from the [facility]. Chest x-ray from 02/24/2017 shows left lower lobe infiltrate and CHF findings. CT of the chest on the same date interestingly shows right lower lobe pneumonia and suspected mucus plugging. The recommendation is repeat CT of the chest in 3 months to document clearance. EKG from the [facility] shows sinus tachycardia 100 bpm poor R-wave wave progression, no ST or T-wave changes. Consult Discharge Plan - Plan Referrals: [facility] [Primary Care Provider] -
[2017-02-27] MEDS: methylPREDNISolone 125 MG/2 ML VIAL IVP SCH ×2 (18:43→23:42)
[2017-02-28] MEDS: Ipratropium/Albuterol Neb 3 ML IH SCH ×6 (04:00→23:29)
[2017-02-28 05:18] LABS: Basophils % 0.1 %; Immature Granulocytes % 0.5 % (0-4); Lymphocytes # 0.8 K/mcL (0.6-4.6); Lymphocytes % 5.6 %; Mean Corpuscular HGB Conc 31.7 g/dL (31.6-35.5); Mean Corpuscular Hemoglobin 30.1 pg (28.0-33.3); Mean Corpuscular Volume 94.9 fL (83.0-100.0); Mean Platelet Volume 9.2 fL (9.4-12.4); Monocytes # 0.4 K/mcL (0.0-1.3); Monocytes % 2.6 %; Neutrophils # 12.4 K/mcL (1.6-8.9); Platelet Count 252 K/mcL (140-400); Red Blood Count 4.32 M/mcL (3.82-4.97); Red Cell Distribution Width 15.3 % (11.5-14.5); Segmented Neutrophils % 91.2 %
[2017-02-28 05:45] LABS: Potassium 3.7 mEq/L (3.5-5.1)
[2017-02-28] MEDS: methylPREDNISolone 125 MG/2 ML VIAL IVP SCH ×4 (06:14→23:43)
[2017-02-28] MEDS: *HR* Heparin 5,000 UNIT/ML VIAL SQ SCH ×2 (06:14→17:14)
[2017-02-28] MEDS: Budesonide/Formoterol 160/4.5 MDI IH SCH ×2 (08:03→20:02)
[2017-02-28] MEDS: Insulin LISPRO 300 UNITS/3 ML VIAL SQ SCH ×4 (08:35→21:31)
[2017-02-28] MEDS: Levofloxacin 750 MG/150 ML 750 MG/150 ML BAG IVPB SCH (08:36)
[2017-02-28] MEDS: Furosemide 40 MG/4 ML VIAL IVP SCH (08:36)
[2017-02-28] MEDS: Aspirin Enteric Coated 81 MG Tablet PO SCH (08:37)
[2017-02-28] MEDS: Cholecalciferol (D-3) 1,000 UNIT TABLET PO SCH (08:37)
[2017-02-28] MEDS: Metoprolol XL (24 HR) Succ 25 MG TAB.ER.24H PO SCH (08:37)
--- NOTE | 2017-02-28 09:30 | Pulmonology Progress Note ---
Date of Encounter: 02/28/17 Time of Encounter: 08:55 Assessment and Plan (1) Acute and chronic respiratory failure with hypoxia Current Visit: Yes Status: Acute Patient clinically feeling better with current treatment mainly diuresis and treatment of her underlying congestive heart failure exacerbation and she still edematous and need more diuresis as much as possible with continuation of noninvasive ventilation for her underlying sleep apnea as well as chronic hypercapnic respiratory failure. Wean off FiO2 as tolerated to her baseline which is 5 L at rest at home and she usually increase it to 8 during exertion. (2) CHF exacerbation Current Visit: Yes Status: Acute Patient is responding to diuresis and clinically she is feeling better. Qualifiers: Congestive heart failure type: unspecified congestive heart failure type Qualified Code(s): I50.9 - Heart failure, unspecified (3) COPD (chronic obstructive pulmonary disease) Current Visit: Yes Status: Chronic Continue bronchodilators Qualifiers: COPD type: chronic bronchitis Chronic bronchitis type: simple Qualified Code(s): J41.0 - Simple chronic bronchitis (4) MORIAH and COPD overlap syndrome Current Visit: Yes Status: Chronic Patient is tolerating noninvasive ventilation Subjective Principal diagnosis: Acute on Chronic hypoxic and hypercapnic respiratory failure Interval history: Patient is feeling better with diuresis and she is tolerating noninvasive ventilation Objective PUL Vital signs: Last Vital Signs Temp 98.5 F 02/28/17 07:47 Pulse 95 02/28/17 07:47 Resp 16 02/28/17 08:05 BP 156/70 02/28/17 07:47 Pulse Ox 91 02/28/17 08:05 General appearance: no acute distress Eyes: nonicteric ENT: oropharynx dry Mallampati (class): 4 Neck: supple Effort: mildly labored Auscultation: bilateral: diminished breath sounds Percussion: bilateral: not dull Cardiovascular: regular rate and rhythm Gastrointestinal: normoactive bowel sounds Extremities: edema normal mental status, non-focal exam mood appropriate Results - Laboratory Findings CBC and BMP: 02/28/17 04:50 02/28/17 04:50 ABG ABG pH 7.43 pH Units (7.32-7.45) 02/27/17 16:19 ABG pCO2 72 mmHg (35-45) H* 02/27/17 16:19 ABG pO2 106 mmHg (85-104) H 02/27/17 16:19 ABG O2 Saturation 98 % (95-98) 02/27/17 16:19 Abnormal lab findings: Abnormal lab results WBC 13.6 K/mcL (4.3-11.1) H 02/28/17 04:50 RDW 15.3 % (11.5-14.5) H 02/28/17 04:50 MPV 9.2 fL (9.4-12.4) L 02/28/17 04:50 Neutrophils # 12.4 K/mcL (1.6-8.9) H 02/28/17 04:50 ABG pCO2 72 mmHg (35-45) H* 02/27/17 16:19 ABG pO2 106 mmHg (85-104) H 02/27/17 16:19 ABG HCO3 48 mEq/L (21-27) H 02/27/17 16:19 ABG Total CO2 50 mEq/L (20-26) H 02/27/17 16:19 ABG Base Excess 19 mEq/L (-2 to 3) H 02/27/17 16:19 Chloride 87 mEq/L (98-107) L 02/28/17 04:50 Carbon Dioxide 43 mEq/L (23-29) H* 02/28/17 04:50 BUN 42 mg/dL (8-23) H 02/28/17 04:50 Creatinine 1.26 mg/dL (0.60-1.20) H 02/28/17 04:50 Est GFR ( Amer) 50 (> 60) L 02/28/17 04:50 Est GFR (Non-Af Amer) 41 (> 60) L 02/28/17 04:50 BUN/Creatinine Ratio 33 (6-26) H 02/28/17 04:50 Glucose 166 mg/dL (70-105) H 02/28/17 04:50 POC Glucose 153 (58-89) H 02/27/17 15:55 Hemoglobin A1c 5.7 % (-5.6) H 02/26/17 06:15 Calculated Osmolality 302 (280-300) H 02/28/17 04:50 Serum Total Protein 6.2 g/dL (6.4-8.9) L 02/25/17 05:08 Vancomycin Trough 8.2 mcg/mL (10-20) L 02/26/17 12:53 - Microbiology Findings Microbiology Findings: Microbiology, Last 48 Hours 02/27/17 04:10 Legionella Antigen - Final Urine,Clean Catch - Clinical Findings Intake & Output: Intake & Output 02/27/17 02/28/17 02/28/17 23:59 07:59 15:59 Output Total 950 / 950 Balance -950 / -950 Weight 104.054 kg Consult Discharge Plan - Plan [facility]: [facility] Care Provider[facility] -
--- NOTE | 2017-02-28 11:27 | Internal Med Progress Note ---
<Savanah Zhao - Last Filed: 02/28/17 11:24> Date of Encounter: 02/28/17 Time of Encounter: 11:24 - Assessment and plan (1) Acute and chronic respiratory failure with hypoxia Current Visit: Yes Status: Acute Assessment and plan: with hypercapnia Secondary to COPD/CHF exacerbation She chronically uses 5L O2 via NC at rest and 8L with exertion at home (2) COPD exacerbation Current Visit: Yes Status: Acute Assessment and plan: pulmonolgy consulted; appreciate recommendations diminished breath sounds BiPAP for respiratory distress, supplemental O2 via NC, duonebs incentive spirometry IV Levaquin (day 5 of 7) IV Solu-Medrol 60 mg q6hr Robitussin 400 mg q8hr PRN (3) CHF exacerbation Current Visit: Yes Status: Acute Assessment and plan: Echo 02/25: EF 65%, normal systolic function, indeterminant diastolic dysfunction. proBNP at [facility] 360; within normal range for 76yo BNP 02/27 62 IV Lasix 40 mg IV BID 1 L fluid restriction Daily weights strict I and O Qualifiers: Congestive heart failure type: unspecified congestive heart failure type Qualified Code(s): I50.9 - Heart failure, unspecified (4) Pneumonia Current Visit: Yes Status: Chronic Assessment and plan: Chest x-ray at [facility] showed left lower pneumonia. Patient was recently admitted to the hospital for same, most likely HCAP. Also admitted for acute exacerbation of CHF/COPD which is worsening her shortness of breath. no respiratory distress, lungs are diminished throughout BiPAP for respiratory distress, supplemental O2 via NC, duonebs incentive spirometry IV Levaquin (day 5 of 7) IV Solu-Medrol 60 mg q6hr Robitussin 400 mg q8hr PRN Qualifiers: Pneumonia type: due to unspecified organism Laterality: left Lung location: lower lobe of lung Qualified Code(s): J18.1 - Lobar pneumonia, unspecified organism (5) MORIAH (obstructive sleep apnea) Current Visit: Yes Status: Acute Assessment and plan: Patient has BiPAP at home, will continue here as well. (6) Hypertension Current Visit: Yes Status: Acute Assessment and plan: chronic, stable continue home medications continue to monitor Qualifiers: Hypertension type: essential hypertension Qualified Code(s): I10 - Essential (primary) hypertension (7) Morbid obesity Current Visit: Yes Status: Acute - Subjective Interval history: Patient states that she is breathing better today. She states that her oxygen requirements while inpatient have decreased. - Constitutional Vitals: Temp Pulse Resp BP Pulse Ox 99.4 F 98 14 115/76 93 02/28/17 10:43 02/28/17 10:43 02/28/17 10:43 02/28/17 10:43 02/28/17 10:43 General appearance: Present: cooperative, A&O X 3, morbidly obese, pleasant, answers questions appropriately - Head Head exam: Present: atraumatic, normocephalic - Eye Eye exam: Present: PERRL, conjuntiva pink, sclera anicteric Pupils: Present: PERRL - Neck Neck exam general surgery: Present: supple, trachea midline - Respiratory Respiratory exam: Present: decreased breath sounds - Cardiovascular Cardiovascular exam: Present: RRR, +S1, +S2. Absent: diastolic murmur, gallop, rubs, systolic murmur - GI/Abdominal GI/Abdominal exam: Present: normal bowel sounds, soft, no peritoneal signs. Absent: distended, tenderness Additional comments: exam limited by body habitus - Extremities Exam Extremities exam: Present: normal capillary refill, pedal edema, tenderness, warm. Absent: normal inspection Additional comments: right LE with 2-3 + pitting edema at the foot, 1+ below the knee; tenderness to palpation of the edema at the ankle - Neurological Exam Neurological exam: Present: CN II-XII intact, oriented X3, no focal deficits. Absent: pronater drift, facial droop, speech deficit - Skin Skin exam: Present: dry, intact Internal Medicine: Result - Labs CBC & Chem 7: 02/28/17 04:50 02/28/17 04:50 Labs: Short CBC 02/28/17 Range/Units 04:50 WBC 13.6 H (4.3-11.1) K/mcL Hgb 13.0 (11.5-15.4) g/dL Hct 41.0 (35.3-44.9) % Plt Count 252 (140-400) K/mcL Neutrophils # 12.4 H (1.6-8.9) K/mcL BMP 02/28/17 04:50 Sodium 139 Potassium 3.7 Chloride 87 L Carbon Dioxide 43 H* BUN 42 H Creatinine 1.26 H Glucose 166 H Calcium 10.0 - ABG Interpretation ABG results: ABG ABG pH 7.43 pH Units (7.32-7.45) 02/27/17 16:19 ABG pCO2 72 mmHg (35-45) H* 02/27/17 16:19 ABG pO2 106 mmHg (85-104) H 02/27/17 16:19 ABG O2 Saturation 98 % (95-98) 02/27/17 16:19 - Impressions Impressions Pulmonary Perfusion Imaging 02/27/17 11:39 IMPRESSION: Intermediate probability scan for pulmonary embolus with matched defect in the left lower lobe corresponding to a radiographic abnormality. D/ / 02/27/2017 13:46:59 Chandana Beal MD / [place] Interpreting Provider: Chandana Beal MD Chest X-Ray 02/27/17 12:09 IMPRESSION: No significant interval change. D/ / Eduard Ramirez MD / Eduard Ramirez MD Interpreting Provider: Eduard Ramirez MD Consult Discharge Plan - Plan [facility]errals: [facility] [Primary Care Provider] - <Prem Alston - Last Filed: 02/28/17 13:39> Date of Encounter: 02/28/17 - Assessment and plan (1) Morbid obesity Current Visit: Yes Status: Acute (2) CHF exacerbation Current Visit: Yes Status: Acute Qualifiers: Congestive heart failure type: unspecified congestive heart failure type Qualified Code(s): I50.9 - Heart failure, unspecified (3) COPD (chronic obstructive pulmonary disease) Current Visit: Yes Status: Chronic Qualifiers: COPD type: chronic bronchitis Chronic bronchitis type: simple Qualified Code(s): J41.0 - Simple chronic bronchitis (4) Acute and chronic respiratory failure with hypoxia Current Visit: Yes Status: Acute - Constitutional Vitals: Temp Pulse Resp BP Pulse Ox 99.4 F 98 16 115/76 92 02/28/17 10:43 02/28/17 10:43 02/28/17 11:38 02/28/17 10:43 02/28/17 11:38 Internal Medicine: Result - Labs CBC & Chem 7: 02/28/17 04:50 02/28/17 04:50 Labs: Short CBC 02/28/17 Range/Units 04:50 WBC 13.6 H (4.3-11.1) K/mcL Hgb 13.0 (11.5-15.4) g/dL Hct 41.0 (35.3-44.9) % Plt Count 252 (140-400) K/mcL Neutrophils # 12.4 H (1.6-8.9) K/mcL BMP 02/28/17 04:50 Sodium 139 Potassium 3.7 Chloride 87 L Carbon Dioxide 43 H* BUN 42 H Creatinine 1.26 H Glucose 166 H Calcium 10.0 - ABG Interpretation ABG results: ABG ABG pH 7.43 pH Units (7.32-7.45) 02/27/17 16:19 ABG pCO2 72 mmHg (35-45) H* 02/27/17 16:19 ABG pO2 106 mmHg (85-104) H 02/27/17 16:19 ABG O2 Saturation 98 % (95-98) 02/27/17 16:19 - Impressions Impressions Pulmonary Perfusion Imaging 02/27/17 11:39 IMPRESSION: Intermediate probability scan for pulmonary embolus with matched defect in the left lower lobe corresponding to a radiographic abnormality. D/ / 02/27/2017 13:46:59 Chandana Beal MD / [email or web address] Interpreting Provider: Chandana Beal MD - Attending Attestation I conducted a face to face diagnostic evaluation of this patient and my medical decision-making was reviewed with the Resident Physician, Dr Savanah Zhao. I agree with the documented findings, disposition and treatment plan as described except to the extent set forth below: Lung exam reveals diminished breath sounds. Heart is regular. There is bilateral lower extremity pitting edema. We will continue with steroids for COPD. Continue with BiPAP for MORIAH. Incentive spirometry. New diagnosis: Acute kidney injury. We will hold diuretics for now due to sharp rise in creatinine. Monitor kidney function and resume Lasix and the morning if kidney function stabilizes. Hold triamterene/HCTZ for now. Prem lAston MD
[2017-03-01] MEDS: Ipratropium/Albuterol Neb 3 ML IH SCH ×5 (04:30→20:40)
[2017-03-01 04:59] LABS: Basophils % 0.1 %; Hematocrit 39.6 % (35.3-44.9); Hemoglobin 12.4 g/dL (11.5-15.4); Lymphocytes # 0.7 K/mcL (0.6-4.6); Lymphocytes % 5.4 %; Mean Corpuscular HGB Conc 31.3 g/dL (31.6-35.5); Mean Corpuscular Hemoglobin 30.2 pg (28.0-33.3); Mean Corpuscular Volume 96.6 fL (83.0-100.0); Mean Platelet Volume 9.1 fL (9.4-12.4); Monocytes # 0.5 K/mcL (0.0-1.3); Monocytes % 4.2 %; Neutrophils # 11.5 K/mcL (1.6-8.9); Platelet Count 248 K/mcL (140-400); Red Cell Distribution Width 14.8 % (11.5-14.5); Segmented Neutrophils % 89.3 %
[2017-03-01] MEDS: methylPREDNISolone 125 MG/2 ML VIAL IVP SCH ×3 (05:08→18:35)
[2017-03-01] MEDS: *HR* Heparin 5,000 UNIT/ML VIAL SQ SCH ×2 (05:08→18:34)
[2017-03-01 05:23] LABS: BUN/Creatinine Ratio 40 (6-26); Blood Urea Nitrogen 42 mg/dL (8-23); Calcium 9.9 mg/dL (8.6-10.3); Carbon Dioxide 45 mEq/L (23-29); Chloride 90 mEq/L (98-107); Glucose 176 mg/dL (70-105); Osmolality,Calculated 305 (280-300); Potassium 3.6 mEq/L (3.5-5.1); Sodium 140 mEq/L (136-145); eGFR For African Americans > 60 (> 60); eGFR For Non-African Americans 51 (> 60)
[2017-03-01] MEDS: Budesonide/Formoterol 160/4.5 MDI IH SCH ×2 (07:36→20:40)
[2017-03-01] MEDS: Metoprolol XL (24 HR) Succ 25 MG TAB.ER.24H PO SCH (08:41)
[2017-03-01] MEDS: Aspirin Enteric Coated 81 MG Tablet PO SCH (08:41)
[2017-03-01] MEDS: Cholecalciferol (D-3) 1,000 UNIT TABLET PO SCH (08:41)
[2017-03-01] MEDS: Insulin LISPRO 300 UNITS/3 ML VIAL SQ SCH ×4 (08:41→21:01)
--- NOTE | 2017-03-01 10:36 | Discharge Summary ---
<Savanah Zhao - Last Filed: 03/01/17 11:55> Date of Encounter: 03/01/17 Time of Encounter: 10:32 - Discharge Diagnosis (1) Acute and chronic respiratory failure with hypoxia Priority: Primary Status: Acute (2) COPD exacerbation Priority: Primary Status: Acute (3) CHF exacerbation Priority: Primary Status: Acute Qualifiers: Congestive heart failure type: unspecified congestive heart failure type Qualified Code(s): I50.9 - Heart failure, unspecified (4) Pneumonia Priority: Primary Status: Chronic Qualifiers: Pneumonia type: due to unspecified organism Laterality: left Lung location: lower lobe of lung Qualified Code(s): J18.1 - Lobar pneumonia, unspecified organism (5) MORIAH (obstructive sleep apnea) Priority: Secondary Status: Acute (6) Hypertension Priority: Secondary Status: Acute Qualifiers: Hypertension type: essential hypertension Qualified Code(s): I10 - Essential (primary) hypertension (7) Morbid obesity Priority: Secondary Status: Acute - Discharge Medications Prescriptions: levoFLOXacin [Levaquin] 750 mg PO DAILY #1 tablet PredniSONE [Deltasone] See Taper PO DAILY #18 tablet Home Medications: Albuterol Neb [Proventil Neb] 2.5 mg IH Q4H PRN 02/24/17 [History] Aspirin Enteric Coated [Aspirin EC] 81 mg PO DAILY 02/24/17 [History] Atorvastatin [Lipitor] 40 mg PO HS 02/24/17 [History] Budesonide/Formoterol 160/4.5 [Symbicort 160/4.5] 2 puff IH BIDR 02/24/17 [ History] Calcium Carbonate/Vitamin D3 [Calcium 600-Vit D3 400 Tablet] 2 each PO DAILY [History] Cyclobenzaprine [Flexeril] 10 mg PO TID PRN 02/24/17 [History] Guaifenesin [Tab Tussin] 400 mg PO Q8H PRN 02/24/17 [History] Levalbuterol Tartrate [Xopenex Hfa] 2 puff IH Q6H PRN 02/24/17 [History] Levothyroxine [Synthroid] 176 mcg PO QAM 02/24/17 [History] Metoprolol XL (24 HR) Succ [Toprol Xl] 25 mg PO DAILY 02/24/17 [History] Naproxen [Naprosyn] 500 mg PO BID PRN 02/24/17 [History] Pantoprazole Sodium 40 mg PO DAILY 02/24/17 [History] Polyethylene Glycol 3350 [MiraLAX] 17 gm PO BID 02/24/17 [History] Vit Calc,Iron,Folic [ Vitamins] 1 each PO DAILY 02/24/17 [ History] Sertraline [Zoloft] 50 mg PO DAILY 02/24/17 [History] Theophylline Anhydrous [Herson-24] 100 mg PO DAILY 02/24/17 [History] Tiotropium [place] [Spiriva Respimat] 2 puff IH DAILY 02/24/17 [History] Triamterene/HCTZ 37.5/25mg [Dyazide] 1 each PO DAILY 02/24/17 [History] PredniSONE [Deltasone] See Taper PO DAILY #18 tablet 03/01/17 [Rx] levoFLOXacin [Levaquin] 750 mg PO DAILY #1 tablet 03/01/17 [Rx] Allergies/Adverse Reactions: 3 Allergy/AdvReac Type Severity Reaction Status Date / Time loratadine [From Claritin] Allergy See Verified 02/24/17 19:21 Comments adhesive tape AdvReac See Verified 02/24/17 19:51 Comments Iodinated Contrast- Oral and AdvReac See Verified 02/24/17 19:51 IV Dye Comments roflumilast AdvReac See Verified 02/24/17 19:51 Comments Procedures/tests Complete & Pending: Procedures Performed prior 72 hours Category Date Time Status VQ Scan [NM pul vent and perfuse] [NM] Stat Exams 02/27/17 11:39 Completed Date of admission: 02/25/17 10:14 [facility] care physician: [facility] Consults: 02/25/17 13:04 Consult to PICC team [Consult to Invasive Line Access Team] [CONS] Routine Reason for Consult: Iv antibiotics Line Type: EPIV 02/26/17 09:38 Consult to Pulmonology [CONS] Routine Consulting Provider: [facility] [place] Reason for Consult: Dyspnea, acute on chronic resp failure. Pneumonia, CHF. Not improving. Time Notified: 09:39 Call Completed: Yes Discharging clinician: Savanah Zhao Anticipated date of discharge: 03/01/17 - Patient Status Disposition: Home, Self-Care Condition: Fair Functional capacity at discharge: independent ambulation Overall status at discharge: patient is back to baseline - Discharge Instructions Follow Up With: [facility] [[facility] Care Provider[facility] - - Diet and Activity Activity: resume usual activities as tolerated, wear oxygen at all times Diet: diabetic diet, low fat, low cholesterol, low salt diet, other (1L fluid restriction) Interval History: Patient states that her breathing is back to normal. Her edema is improved. She states that her oxygen requirements are back to normal for her. She states that she has been moving to the bedside commode and giving herself a bath each morning. She states that chronically at home she only moves about 10-15 feet without having to sit down. It is normal for her to get out of breath and have to stop and "get my oxygen back up." Hospital course: Ms. Rodgers is a 76 year old female admitted to the hospital with a one-week history of increasing shortness of breath. Chest x-ray at urgent care showed pulmonary vascular congestion and left lower lobe pneumonia. She was admitted for pneumonia, COPD exacerbation, CHF exacerbation. She was treated with IV Levaquin, IV Lasix, fluid restriction, and IV Solu-Medrol. She had a few days of IV vancomycin and cefepime also. The patient's breathing improved back to her normal colon 5 L of oxygen at rest and 8 L with exertion. She will be evaluated by PT and OT prior to discharge. - Time Spent with Patient Total time spent providing and/or coordinating discharge services: - Constitutional Vitals: Temp Pulse Resp BP Pulse Ox 98.3 F 71 20 128/83 91 03/01/17 07:30 03/01/17 07:30 03/01/17 07:55 03/01/17 07:30 03/01/17 07:55 General appearance: Present: cooperative, A&O X 3, morbidly obese, pleasant, answers questions appropriately - Head Head exam: Present: atraumatic, normocephalic - Eye Eye exam: Present: PERRL, conjuntiva pink, sclera anicteric Pupils: Present: PERRL - Neck Neck exam general surgery: Present: supple, trachea midline - Respiratory Respiratory exam: Present: decreased breath sounds - Cardiovascular Cardiovascular exam: Present: RRR, +S1, +S2. Absent: diastolic murmur, gallop, rubs, systolic murmur - GI/Abdominal GI/Abdominal exam: Present: normal bowel sounds, soft, no peritoneal signs. Absent: distended, tenderness - Extremities Exam Extremities exam: Present: normal capillary refill, warm Additional comments: Right lower leg with 1+ pedal edema, mild tenderness; left lower extremity no edema; dorsalis pedis pulses palpable and symmetric - Neurological Exam Neurological exam: Present: CN II-XII intact, oriented X3, no focal deficits. Absent: pronater drift, facial droop, speech deficit - Skin Skin exam: Present: dry, intact <Ducu,Prem - Last Filed: 03/01/17 16:56> Date of Encounter: 03/01/17 - Discharge Diagnosis (1) Morbid obesity Status: Acute (2) CHF exacerbation Status: Acute Qualifiers: Congestive heart failure type: unspecified congestive heart failure type Qualified Code(s): I50.9 - Heart failure, unspecified (3) COPD (chronic obstructive pulmonary disease) Status: Chronic Qualifiers: COPD type: chronic bronchitis Chronic bronchitis type: simple Qualified Code(s): J41.0 - Simple chronic bronchitis (4) Acute and chronic respiratory failure with hypoxia Status: Acute Procedures/tests Complete & Pending: Procedures Performed prior 72 hours Category Date Time Status VQ Scan [NM pul vent and perfuse] [NM] Stat Exams 02/27/17 11:39 Completed Date of admission: 02/25/17 10:14 Primary care physician: PCP [place] Consults: 02/25/17 13:04 Consult to PICC team [Consult to Invasive Line Access Team] [CONS] Routine Reason for Consult: Iv antibiotics Line Type: EPIV 02/26/17 09:38 Consult to Pulmonology [CONS] Routine Consulting Provider: Pulm [facility] [place] Reason for Consult: Dyspnea, acute on chronic resp failure. Pneumonia, CHF. Not improving. Time Notified: 09:39 Call Completed: Yes 03/01/17 11:35 Consult to Occupational Therapy [CONS] Stat Comment: Evaluate, develop and implement POC Reason for Consult: Evaulate need for placement Consult to Physical Therapy [CONS] Stat Comment: Evaluate, develop and implement POC Reason for Consult: evaluate for placement 03/01/17 11:52 Consult to Chiropractic Care [CONS] Routine Reason for SW Consult: discharge planning. Hospital course: Ms. Rodgers is a 76 year old female - Time Spent with Patient Total time spent providing and/or coordinating discharge services: - Constitutional Vitals: Temp Pulse Resp BP Pulse Ox 98.4 F 85 20 152/81 92 03/01/17 14:58 03/01/17 14:58 03/01/17 15:52 03/01/17 14:58 03/01/17 15:52 - Attending Attestation I conducted a face to face diagnostic evaluation of this patient and my medical decision-making was reviewed with the Resident Physician, Dr Savanah Zhao. I agree with the documented findings, disposition and treatment plan as described except to the extent set forth below: From the respiratory standpoint. Patient is back to baseline. We will prescribe oral Lasix and prednisone taper. Patient was evaluated by PT who recommended home physical therapy. Social work was consulted and will make a referral for home health. Patient will be discharged home. Prem Alston MD
[2017-03-01] MEDS: Furosemide 40 MG/4 ML VIAL IVP SCH (12:25)
[2017-03-02] MEDS: Ipratropium/Albuterol Neb 3 ML IH SCH ×4 (00:10→12:08)
[2017-03-02 04:57] LABS: Basophils % 0.1 %; Hematocrit 38.1 % (35.3-44.9); Hemoglobin 11.9 g/dL (11.5-15.4); Lymphocytes % 7.4 %; Mean Corpuscular HGB Conc 31.2 g/dL (31.6-35.5); Mean Corpuscular Hemoglobin 29.9 pg (28.0-33.3); Mean Corpuscular Volume 95.7 fL (83.0-100.0); Mean Platelet Volume 9.1 fL (9.4-12.4); Monocytes # 0.8 K/mcL (0.0-1.3); Monocytes % 5.6 %; Neutrophils # 11.7 K/mcL (1.6-8.9); Platelet Count 236 K/mcL (140-400); Red Blood Count 3.98 M/mcL (3.82-4.97); Red Cell Distribution Width 14.8 % (11.5-14.5); Segmented Neutrophils % 85.9 %
[2017-03-02 05:13] LABS: BUN/Creatinine Ratio 47 (6-26); Blood Urea Nitrogen 41 mg/dL (8-23); Calcium 9.5 mg/dL (8.6-10.3); Carbon Dioxide 45 mEq/L (23-29); Chloride 93 mEq/L (98-107); Glucose 142 mg/dL (70-105); Osmolality,Calculated 303 (280-300); Potassium 3.8 mEq/L (3.5-5.1); Sodium 140 mEq/L (136-145); eGFR For African Americans > 60 (> 60); eGFR For Non-African Americans > 60 (> 60)
[2017-03-02] MEDS: methylPREDNISolone 125 MG/2 ML VIAL IVP SCH (05:20)
[2017-03-02] MEDS: *HR* Heparin 5,000 UNIT/ML VIAL SQ SCH (05:29)
[2017-03-02 06:48] VITALS: BP 128/76
[2017-03-02] MEDS: Insulin LISPRO 300 UNITS/3 ML VIAL SQ SCH (07:38)
[2017-03-02] MEDS: Budesonide/Formoterol 160/4.5 MDI IH SCH (08:13)
[2017-03-02] MEDS ORDERED: Levofloxacin 750 MG/150 ML 750 MG/150 ML BAG IVPB SCH (09:00)
[2017-03-02] MEDS: Cholecalciferol (D-3) 1,000 UNIT TABLET PO SCH (09:50)
[2017-03-02] MEDS: Aspirin Enteric Coated 81 MG Tablet PO SCH (09:50)
[2017-03-02] MEDS: Metoprolol XL (24 HR) Succ 25 MG TAB.ER.24H PO SCH (09:51)
[2017-03-02] MEDS: Furosemide 40 MG/4 ML VIAL IVP SCH (09:53)
--- NOTE | 2017-03-02 11:20 | Internal Med Progress Note ---
Date of Encounter: 03/02/17 Time of Encounter: 11:19 - Assessment and plan (1) Morbid obesity Status: Acute (2) CHF exacerbation Status: Acute Qualifiers: Congestive heart failure type: diastolic Qualified Code(s): I50.33 - Acute on chronic diastolic (congestive) heart failure (3) COPD (chronic obstructive pulmonary disease) Status: Chronic Qualifiers: COPD type: chronic bronchitis Chronic bronchitis type: simple Qualified Code(s): J41.0 - Simple chronic bronchitis (4) Acute and chronic respiratory failure with hypoxia Status: Acute - Subjective Interval history: Please refer to the previous progress note from the same date of service. - Constitutional Vitals: Temp Pulse Resp BP Pulse Ox 97.8 F 72 16 128/76 89 03/02/17 06:42 03/02/17 06:42 03/02/17 08:13 03/02/17 06:42 03/02/17 10:08 General appearance: Present: cooperative, A&O X 3, morbidly obese, pleasant, answers questions appropriately - Respiratory Respiratory exam: Present: wheezes. Absent: accessory muscle use, rales, rhonchi - Cardiovascular Cardiovascular exam: Present: RRR, +S1, +S2. Absent: diastolic murmur, gallop, rubs, systolic murmur Internal Medicine: Result - Labs CBC & Chem 7: 03/02/17 04:46 03/02/17 04:46 Labs: Short CBC 03/02/17 Range/Units 04:46 WBC 13.7 H (4.3-11.1) K/mcL Hgb 11.9 (11.5-15.4) g/dL Hct 38.1 (35.3-44.9) % Plt Count 236 (140-400) K/mcL Neutrophils # 11.7 H (1.6-8.9) K/mcL BMP 03/02/17 04:46 Sodium 140 Potassium 3.8 Chloride 93 L Carbon Dioxide 45 H* BUN 41 H Creatinine 0.88 Glucose 142 H Calcium 9.5 - ABG Interpretation ABG results: ABG ABG pH 7.43 pH Units (7.32-7.45) 02/27/17 16:19 ABG pCO2 72 mmHg (35-45) H* 02/27/17 16:19 ABG pO2 106 mmHg (85-104) H 02/27/17 16:19 ABG O2 Saturation 98 % (95-98) 02/27/17 16:19 Consult Discharge Plan - Plan Instructions: Heart Failure (DC), Acute Respiratory Distress Syndrome (DC), Chronic Obstructive Pulmonary Disease (DC), Pneumonia (DC) Additional Instructions: If symptoms return or worsen please return to the nearest emergency room or call 911. Referrals: [facility],PCP [Primary Care Provider] - 03/09/17 1:15 pm (voicemail left for [facility] to call you with appointment ) Prescriptions: Furosemide [Lasix] 40 mg PO DAILY #14 tab levoFLOXacin [Levaquin] 750 mg PO DAILY #1 tablet PredniSONE [Deltasone] See Taper PO DAILY #18 tablet
--- NOTE | 2017-03-02 11:21 | Physician Discharge Referral ---
Home Health/Hosp Referral Info Transfer to: Home Health Provider in Charge Post Discharge: PCP - Diagnosis (1) Morbid obesity Status: Acute (2) CHF exacerbation Status: Acute (3) COPD (chronic obstructive pulmonary disease) Status: Chronic (4) Acute and chronic respiratory failure with hypoxia Status: Acute - Respiratory Orders Oxygen / L per min, Other (BiPAP QHS) Smoking Cessation: Smoking cessation has been advised. For more information, call the [place] Tobacco Quit Line at 7-614-VKBL-NOW. - Diet/Nutrition Diet/Nutrition Orders: No Added Salt (REZA), Cardiac, No Concentrated Sweets - Activity Activity Orders: Walker - Services Needed Following services are medically necessary services: Nursing, Home Health Aide, Physical Therapy, Occupational Therapy - Transfer Medications Prescriptions: Furosemide [Lasix] 40 mg PO DAILY #14 tab levoFLOXacin [Levaquin] 750 mg PO DAILY #1 tablet PredniSONE [Deltasone] See Taper PO DAILY #18 tablet Home Medications: Albuterol Neb [Proventil Neb] 2.5 mg IH Q4H PRN 02/24/17 [History] Aspirin Enteric Coated [Aspirin EC] 81 mg PO DAILY 02/24/17 [History] Atorvastatin [Lipitor] 40 mg PO HS 02/24/17 [History] Budesonide/Formoterol 160/4.5 [Symbicort 160/4.5] 2 puff IH BIDR 02/24/17 [ History] Calcium Carbonate/Vitamin D3 [Calcium 600-Vit D3 400 Tablet] 2 each PO DAILY [History] Cyclobenzaprine [Flexeril] 10 mg PO TID PRN 02/24/17 [History] Guaifenesin [Tab Tussin] 400 mg PO Q8H PRN 02/24/17 [History] Levalbuterol Tartrate [Xopenex Hfa] 2 puff IH Q6H PRN 02/24/17 [History] Levothyroxine [Synthroid] 176 mcg PO QAM 02/24/17 [History] Metoprolol XL (24 HR) Succ [Toprol Xl] 25 mg PO DAILY 02/24/17 [History] Naproxen [Naprosyn] 500 mg PO BID PRN 02/24/17 [History] Pantoprazole Sodium 40 mg PO DAILY 02/24/17 [History] Polyethylene Glycol 3350 [MiraLAX] 17 gm PO BID 02/24/17 [History] Vit Calc,Iron,Folic [ Vitamins] 1 each PO DAILY 02/24/17 [ History] Sertraline [Zoloft] 50 mg PO DAILY 02/24/17 [History] Theophylline Anhydrous [Herson-24] 100 mg PO DAILY 02/24/17 [History] Tiotropium [place] [Spiriva Respimat] 2 puff IH DAILY 02/24/17 [History] Triamterene/HCTZ 37.5/25mg [Dyazide] 1 each PO DAILY 02/24/17 [History] PredniSONE [Deltasone] See Taper PO DAILY #18 tablet 03/01/17 [Rx] levoFLOXacin [Levaquin] 750 mg PO DAILY #1 tablet 03/01/17 [Rx] Furosemide [Lasix] 40 mg PO DAILY #14 tab 03/02/17 [Rx] Allergies/Adverse Reactions: 3 Allergy/AdvReac Type Severity Reaction Status Date / Time loratadine [From Claritin] Allergy See Verified 02/24/17 19:21 Comments adhesive tape AdvReac See Verified 02/24/17 19:51 Comments Iodinated Contrast- Oral and AdvReac See Verified 02/24/17 19:51 IV Dye Comments roflumilast AdvReac See Verified 02/24/17 19:51 Comments Certification: Further, I certify that my clinical findings support that this patient is homebound (i.e. absences from home require considerable and taxing effort and are for medical reasons or jew services or infrequently or short duration when for other reasons) because: Homebound Reason: Patient requires assistance of a person or device to safely leave home, Absences from home are contraindicated except to recieve medical care, Leaving home requires considerable and taxing effort due to condition, Severity of cardiac or pulmonary status limits activity tolerance Attestation: My signature below is to certify that this patient is under my care and that I, or nurse practitioner, or a physician's data assistant working with me, has a face-to -face encounter with this patient.
--- NOTE | 2017-03-02 17:55 | Internal Med Progress Note ---
Date of Encounter: 03/02/17 Time of Encounter: 11:00 - Assessment and plan (1) Morbid obesity Status: Acute Assessment and plan: Outpatient weight loss regimen. (2) CHF exacerbation Status: Acute Assessment and plan: Echo 02/25: EF 65%, normal systolic function, indeterminant diastolic dysfunction. [facility]; within normal range for 76yo BNP 02/27 62 We will order daily Lasix 40 mg for the next 7 days outpatient and recommend follow-up with PCP. CHF instructions provided. Final diagnosis: Acute on chronic diastolic CHF Qualifiers: Congestive heart failure type: diastolic Qualified Code(s): I50.33 - Acute on chronic diastolic (congestive) heart failure (3) COPD (chronic obstructive pulmonary disease) Status: Chronic Assessment and plan: Prednisone taper. Finish course of Levaquin. Qualifiers: COPD type: chronic bronchitis Chronic bronchitis type: simple Qualified Code(s): J41.0 - Simple chronic bronchitis (4) Acute and chronic respiratory failure with hypoxia Status: Acute Assessment and plan: Resume home oxygen. - Subjective Interval history: Patient reports feeling much better, SOB back to baseline. Sitting up in bed. She ambulated with physical therapy yesterday however she is extremely deconditioned and could only walk about 30 feet. PT recommended home health. - Constitutional Vitals: Temp Pulse Resp BP Pulse Ox 97.8 F 72 16 128/76 91 03/02/17 06:42 03/02/17 06:42 03/02/17 12:08 03/02/17 06:42 03/02/17 12:08 General appearance: Present: cooperative, A&O X 3, morbidly obese, pleasant, answers questions appropriately - Eye Eye exam: Present: PERRL, conjuntiva pink, sclera anicteric Pupils: Present: PERRL - Respiratory Respiratory exam: Present: CTAB. Absent: accessory muscle use, rales, rhonchi, wheezes - Cardiovascular Cardiovascular exam: Present: RRR, +S1, +S2. Absent: diastolic murmur, gallop, rubs, systolic murmur - GI/Abdominal GI/Abdominal exam: Present: normal bowel sounds, soft, no peritoneal signs. Absent: distended, tenderness - Skin Skin exam: Present: dry, intact Internal Medicine: Result - Labs CBC & Chem 7: 03/02/17 04:46 03/02/17 04:46 Labs: Short CBC 03/02/17 Range/Units 04:46 WBC 13.7 H (4.3-11.1) K/mcL Hgb 11.9 (11.5-15.4) g/dL Hct 38.1 (35.3-44.9) % Plt Count 236 (140-400) K/mcL Neutrophils # 11.7 H (1.6-8.9) K/mcL BMP 03/02/17 04:46 Sodium 140 Potassium 3.8 Chloride 93 L Carbon Dioxide 45 H* BUN 41 H Creatinine 0.88 Glucose 142 H Calcium 9.5 - ABG Interpretation ABG results: ABG ABG pH 7.43 pH Units (7.32-7.45) 02/27/17 16:19 ABG pCO2 72 mmHg (35-45) H* 02/27/17 16:19 ABG pO2 106 mmHg (85-104) H 02/27/17 16:19 ABG O2 Saturation 98 % (95-98) 02/27/17 16:19 Consult Discharge Plan - Plan Instructions: Heart Failure (DC), Acute Respiratory Distress Syndrome (DC), Chronic Obstructive Pulmonary Disease (DC), Pneumonia (DC) Additional Instructions: If symptoms return or worsen please return to the nearest emergency room or call 911. [facility] - 03/09/17 1:15 pm ([facility] left for [facility] to [facility] ) Prescriptions: Furosemide [Lasix] 40 mg PO DAILY #14 tab levoFLOXacin [Levaquin] 750 mg PO DAILY #1 tablet PredniSONE [Deltasone] See Taper PO DAILY #18 tablet
[2017-03-03 11:45] LABS: Mycoplasma pneumoniae IgG 0.18 U/L (<=0.09)
== END 2017-03-02 13:00 | disposition home or self-care (01) | DRG 291 ==
LOC: 3BNU 19:18 → EMEROO 19:18 → 3BNU 22:42 → SUATTDRO 02-25 10:14
PROVIDERS: ADMIT Internal Medicine; ATTEND Internal Medicine